=== PATIENT | male | born 1980 | race Caucasian/White ===

== ENCOUNTER 2023-08-29 14:35 | Emergency (ER) | payer OTHER, SELFPAY ==
--- NOTE | ~2023-08-29 | XR_ITS ---
EXAMINATION: XR chest 2V DATE: 08/29/2023 15:05 INDICATION: Mid sternal chest pain TECHNIQUE: PA and lateral views of the chest are obtained. COMPARISON: None available FINDINGS: The lungs are free of acute opacities. No pleural effusion or pneumothorax. The cardiomedia stinal silhouette is normal. The visualized bones and soft tissues are unremarkable. IMPRESSION: 1. No acute cardiopulmonary abnormality. Reviewed, dictated and finalized at location F.
--- NOTE | 2023-08-29 14:37 | ECG_ITS ---
Measurements Intervals [place] Rate: 70 P: 39 NC: 165 QRS: 7 QRSD: 95 T: 8 QT: 371 QTc: 401 Interpretive Statements SINUS RHYTHM DELAYED PRECORDIAL R/S TRANSITION BORDERLINE ST-T WAVE ABNORMALITY- INFERIOR LEADS BASELINE ARTIFACT- I, II, III, AVR, AVL, AVF BORDERLINE ECG NO PREVIOUS ECG AVAILABLE FOR COMPARISON Electronically Signed On 08-29-2023 14:43:01 CDT by Chapito Dao D.O.
[2023-08-29 14:39] VITALS: BP 140/93; PULSE 78; RESP 16; TEMP 36.5; O2SAT 99
--- NOTE | 2023-08-29 14:49 | ED.CHESTPAIN ---
HPI - Chest Pain General Chief Complaint: Chest Pain <CANDE Joseph Last Filed: 08/29/23 14:54> Stated Complaint: chest pain <CANDE Joseph Last Filed: 08/29/23 14:54> Time Seen by Provider: 08/29/23 14:49 <CANDE Joseph Last Filed: 08/29/23 14:54> Focused HPI: Patient is a 42 y/o male who presents to the ED with c/o CP. Patient reports he woke up for work around 320 in the morning with pain in his midsternal chest. He thought he may have acid reflux and tried taking Tums. Denied improvement. He then had a turkey sandwich for lunch and continued to have midsternal chest pain afterwards. States pain is worse with deep breathing. Feels mildly short of breath. He went to medical at work and was referred to the ED for further evaluation. patient denies abdominal pain, nausea, vomiting, cough, cold sx's, BLE pain or swelling. Denies previous issues with cardiac disease. No hx of HTN, HLD, DM. Denies FHx of heart disease. Former smoker. GENERAL: Well-appearing, well-nourished, and in no acute distress. HEAD: Normocephalic, atraumatic. CHEST: Clear to auscultation. ?No respiratory distress. HEART: Regular rate and rhythm.? MSK: No chest wall tenderness to palpation. NEURO: ?Alert and oriented x3. Patient screened in triage and initial orders placed.? ?Additional care and disposition to be based upon?diagnostic testing and treatment. <CADNE Joseph Last Filed: 08/29/23 14:54> Source: patient <CANDE Joseph Last Filed: 08/29/23 14:54> Mode of arrival: ambulatory <CANDE Joseph Last Filed: 08/29/23 14:54> Limitations: no limitations <CANDE Joseph Last Filed: 08/29/23 14:54> History of Present Illness HPI narrative: 42-year-old male presents to emergency department for substernal chest pain that started this morning around 3:20 a.m. when he woke up. Patient states the pain is sharp and worse with deep inspiration and Certain positions. He reports some shortness of breath earlier today but attributes this to a panic attack he was having. He denies current shortness of breath, lower extremity edema, history of VTE, recent surgeries or hospitalizations, cough or congestion, fever. denies personal or family history of cardiac disease or stroke. Denies exertional chest pain, smoking or drug use. Denies associated nausea, vomiting or diaphoresis with this chest pain. States it is nonradiating. <Kayla Cervantes PA-C - Last Filed: 08/29/23 19:22> Related Data Allergies/Adverse Reactions: Allergies Allergy/AdvReac Type Severity Reaction Status Date / Time No Known Allergies Allergy Verified 08/29/23 14:36 <CANDE Joseph Last Filed: 08/29/23 14:54> Review of Systems Review of Systems: CONSTITUTIONAL: Denies fever, chills, or sweats. EYES: Denies visual changes, redness, or discharge. ENT: Denies rhinorrhea, congestion, sore throat, or otalgia. CARDIOVASCULAR: See HPI RESPIRATORY: D see HPI GASTROINTESTINAL: Denies abdominal pain, nausea, vomiting, or diarrhea. GENITOURINARY: Denies dysuria or hematuria. SKIN: Denies rash or itching. MUSCULOSKELETAL: Denies back pain, joint pain, or myalgia. NEUROLOGIC: Denies headache, numbness, or weakness. PSYCHIATRIC: Denies anxiety or depression. <Kayla Cervantes PA-C - Last Filed: 08/29/23 19:22> Exam Narrative: GENERAL: Well-appearing, well-nourished, and in no acute distress. HEAD: Normocephalic, atraumatic. EYES: PERRLA and EOMI. ENT: Nares clear, no rhinorrhea or epistaxis. Mucous membranes moist. NECK: Supple. CHEST: Clear to auscultation. No respiratory distress. no tenderness to the chest wall. No overlying rashes or skin changes. HEART: Regular rate and rhythm. No murmur heard. Normal peripheral pulses. ABDOMEN: Soft, nontender, nondistended, normal active bowel sounds. EXTREMITIES: Normal rang
[2023-08-29 14:55] LABS: Basophils Percent Auto 0.3 % (0.2-1.2); Eosinophils Absolute Auto 0.1 K/mm3 (0-0.3); Eosinophils Percent Auto 1.4 % (0-4.4); Hematocrit 45.3 % (42.0-52.0); Hemoglobin 15.2 g/dL (14.0-18.0); Immature Granulocyte Absolute 0.04 K/mm3 (0.00-0.031); Immature Granulocyte Percent A 0.4 % (0-0.5); Immature Platelet Fraction Pct 26.9 % (0.9-11.2); Lymphocytes Absolute Auto 2.72 K/mm3 (0.9-3.2); Lymphocytes Percent Auto 27.3 % (18.3-44.2); Mean Corpuscular HGB Conc 33.6 g/dl (32-36); Mean Corpuscular Hemoglobin 29.9 pg (26-34); Mean Platelet Volume 13.5 fl (7.4-10.4); Monocytes Absolute Auto 0.9 K/mm3 (0.1-0.6); Monocytes Percent Auto 8.9 % (2.6-8.5); Neutrophils Absolute Auto 6.2 K/mm3 (1.3-6.7); Neutrophils Percent Auto 61.7 % (45.5-73.1); Platelet Count Result 113 k/mm3 (150-375); Red Blood Count 5.09 M/mm3 (4.6-6.20); Red Cell Distribution Width 13.1 % (11.5-14.5)
[2023-08-29 15:04] LABS: INR 0.9; Prothrombin Time 12.5 Seconds (11.1-14.7)
[2023-08-29 15:05] LABS: Partial Thromboplastin Time 29.4 Seconds (22.3-36.8)
[2023-08-29 15:06] LABS: Alanine Aminotransferase 67 U/L (6-50); Albumin Level 4.8 g/dL (3.5-5.1); Alkaline Phosphatase 39 U/L (38-126); Anion Gap 2 mmol/L (8-16); Aspartate Amino Transferase 44 U/L (17-59); Bilirubin,Total 0.8 mg/dL (0.2-1.3); Blood Urea Nitrogen 11 mg/dL (9-20); Calcium 9.4 mg/dL (8.4-10.2); Carbon Dioxide 31 mmol/L (22-30); Chloride 103 mmol/L (98-107); Estimated CRCL calculation 129 ml/min; Estimated Glomerular Filt Rate > 60; Glucose 109 mg/dL (65-110); Lipase 244 U/L (23-300); Potassium 3.9 mmol/L (3.4-5.0); Sodium 136 mmol/L (137-145)
[2023-08-29 15:18] LABS: Troponin I < 0.012 ng/mL (0.000-0.034)
[2023-08-29 15:25] LABS: D Dimer < 0.27 ug/mL (<0.48)
[2023-08-29 18:08] VITALS: BP 139/97; PULSE 69; RESP 18; O2SAT 100
--- NOTE | 2023-08-29 18:09 | ECG_ITS ---
Measurements Intervals [place] Rate: 67 P: 51 MT: 158 QRS: 8 QRSD: 92 T: 7 QT: 399 QTc: 422 Interpretive Statements SINUS RHYTHM DELAYED PRECORDIAL R/S TRANSITION CONSIDER INFERIOR INFARCT, AGE INDETERMINATE ABNORMAL ECG COMPARED TO ECG 08/29/2023 14:41:04 NO SIGNIFICANT CHANGES Electronically Signed On 08-29-2023 18:32:51 CDT by Chapito Dao D.O.
[2023-08-29] MEDS: ASPIRIN 81 MG CHEWABLE TABLET 324 MG PO (18:24)
[2023-08-29 18:45] LABS: Troponin I < 0.012 ng/mL (0.000-0.034)
[2023-08-29] MEDS: BELLADONNA ALK/PHENOB ELIX 10 ML, MAG HYDROX/ALUMINUM HYD/SIMETH 30 ML, LIDOCAINE HCL 2... PO (18:46)
[2023-08-29 19:24] VITALS: BP 150/99; PULSE 69; RESP 14; O2SAT 98
== END 2023-08-29 19:32 | disposition home or self-care (01) ==
PROVIDERS: Emergency Medicine; Emergency Provider Physician Assistant
DX: R07.89 Other chest pain (principal); Z87.891 Personal history of nicotine dependence; R94.31 Abnormal electrocardiogram [ECG] [EKG]
CPT/HCPCS: 36415; 71046; 80053; 83690; 84484; 85025; 85055; 85380; 85610; 85730; 93005; 99284; A9270